=== PATIENT | female | born 1955 | race Caucasian/White ===

== ENCOUNTER 2022-11-02 14:07 | Outpatient (CLI) | payer MEDICARE, OTHER | END 2022-11-02 14:08 | disposition short-term general hospital (02) | LOC: EMS 14:07 | DX: M79.672 Pain in left foot (principal); M25.552 Pain in left hip; R32 Unspecified urinary incontinence; R15.9 Full incontinence of feces; R21 Rash and other nonspecific skin eruption | CPT/HCPCS: A0425; A0427; A0888 ==